=== PATIENT | male | born 1960 | race Caucasian/White ===

== ENCOUNTER 2020-12-07 09:10 | Emergency (ER) | payer BC ==
[~2020-12-07] VITALS: Ht 165.1 cm; Wt 76.2 kg
[2020-12-07 09:41] LABS: HEMOGLOBIN 14.6 gm/dl (14.0-17.5); RED BLOOD COUNT 5.06 M/UL (4.20-5.50); WHITE BLOOD COUNT 4.9 K/UL (4.5-11.0)
[2020-12-07 10:06] LABS: BUN/CREATININE RATIO 15 (0-10)
== END 2020-12-07 14:35 | disposition home or self-care (01) ==
LOC: ER1 09:10
PROVIDERS: Physician Assistant
DX: Z23 Encounter for immunization (principal); U07.1 COVID-19
CPT/HCPCS: 36600; 71045; 80053; 82550; 82553; 82803; 83874; 84484; 85025; 93005; 99285; M0243; U0002

== ENCOUNTER 2020-12-12 17:08 | Inpatient (IN) | payer BC, OTHER ==
[~2020-12-12] VITALS: Ht 165.1 cm; Wt 77.1 kg
[2020-12-12 17:54] LABS: HEMOGLOBIN 16.3 gm/dl (14.0-17.5); RED BLOOD COUNT 5.26 M/UL (4.20-5.50)
[2020-12-12 18:14] LABS: BUN/CREATININE RATIO 23 (0-10)
[2020-12-13 05:27] LABS: WHITE BLOOD COUNT 10.8 K/UL (4.5-11.0)
[2020-12-13 05:44] LABS: RED BLOOD COUNT 4.57 M/UL (4.20-5.50)
[2020-12-13 06:03] LABS: BUN/CREATININE RATIO 26 (0-10)
[2020-12-13] MEDS ORDERED: EXCEDRIN MIGRA1 EACH PO (11:12)
[2020-12-14 04:32] LABS: HEMOGLOBIN 13.6 gm/dl (14.0-17.5); RED BLOOD COUNT 4.48 M/UL (4.20-5.50); WHITE BLOOD COUNT 11.6 K/UL (4.5-11.0)
[2020-12-14 05:19] LABS: BUN/CREATININE RATIO 37 (0-10)
[2020-12-15 06:29] LABS: HEMOGLOBIN 12.9 gm/dl (14.0-17.5); RED BLOOD COUNT 4.26 M/UL (4.20-5.50)
[2020-12-15 06:30] LABS: WHITE BLOOD COUNT 6.9 K/UL (4.5-11.0)
[2020-12-15 06:57] LABS: BUN/CREATININE RATIO 23 (0-10)
[2020-12-16 07:17] LABS: HEMOGLOBIN 13.3 gm/dl (14.0-17.5); RED BLOOD COUNT 4.6 M/UL (4.20-5.50); WHITE BLOOD COUNT 7.1 K/UL (4.5-11.0)
[2020-12-16 07:40] LABS: BUN/CREATININE RATIO 26 (0-10)
[2020-12-16] MEDS ORDERED: MEDROL4 MG PO (09:12)
[2020-12-16] MEDS ORDERED: ELIQUIS 5 MG TAB5 MG PO (09:12)
== END 2020-12-16 14:45 | disposition home or self-care (01) | DRG 177 ==
LOC: ER1 17:08 → CDU 20:20 → M/S 20:20
PROVIDERS: Emergency Medicine; Internal Medicine; ADMIT Internal Medicine
PROC: XW033E5 Introduction of Remdesivir Anti-infective into Peripheral Vein, Percutaneous Approach, New Technology Group 5 (ICD-10-PCS; principal; 2020-12-12)
PROC: 3E0333Z Introduction of Anti-inflammatory into Peripheral Vein, Percutaneous Approach (ICD-10-PCS; 2020-12-12)
PROC: XW13325 Transfusion of Convalescent Plasma (Nonautologous) into Peripheral Vein, Percutaneous Approach, New Technology Group 5 (ICD-10-PCS; 2020-12-13)
PROC: 8E0ZXY6 Isolation (ICD-10-PCS; 2020-12-14)
DX: U07.1 COVID-19 (principal); J12.82 Pneumonia due to coronavirus disease 2019; J96.01 Acute respiratory failure with hypoxia; I26.99 Other pulmonary embolism without acute cor pulmonale; J90 Pleural effusion, not elsewhere classified; Z80.8 Family history of malignant neoplasm of other organs or systems; Z79.01 Long term (current) use of anticoagulants
CPT/HCPCS: 36415; 36600; 71045; 80053; 82803; 83605; 83735; 84100; 85025; 85027; 86140; 86900; 86901; 86927; 87040; 87081; 93005; 94664; 97161; 97166; 99285; J0456; J0696; J1100; J1650; J2185; J2270; J7030; Q9967; U0002

== ENCOUNTER → 2021-04-19 | Outpatient (CLI) | payer OTHER ==
[~2021-04-19] MED LIST: ELIQUIS 5 MG TAB5 MG PO; EXCEDRIN MIGRA1 EACH PO; MEDROL4 MG PO
== END ==
LOC: HEART 5 04-05 07:45
DX: R07.9 Chest pain, unspecified (principal); I26.99 Other pulmonary embolism without acute cor pulmonale; R06.02 Shortness of breath; U09.9 Post COVID-19 condition, unspecified; I08.1 Rheumatic disorders of both mitral and tricuspid valves
CPT/HCPCS: 78452; 93306; A9502; J2785

== ENCOUNTER → 2021-07-20 | Outpatient (CLI) | payer OTHER | LOC: RAD 09:38 | DX: R05.9 Cough, unspecified (principal) | CPT/HCPCS: 71046 ==

== ENCOUNTER → 2021-08-13 | Outpatient (CLI) | payer OTHER | LOC: RAD 08:21 | DX: R13.10 Dysphagia, unspecified (principal); K44.9 Diaphragmatic hernia without obstruction or gangrene | CPT/HCPCS: 74221 ==

== ENCOUNTER → 2021-12-13 | Outpatient (CLI) | payer OTHER | LOC: HEART 5 09:41 | DX: R20.0 Anesthesia of skin (principal) ==